=== PATIENT | male | born 1965 | race Caucasian/White ===

== ENCOUNTER 2022-10-10 10:45 | Outpatient (CLI) | payer OTHER, BC, SELFPAY ==
[2022-10-10 13:39] LABS: Basophils Percent Auto 0.9 % (0.0-3.0); Eosinophils Percent Auto 2.3 % (0.0-7.0); Hematocrit 45.6 % (37.0-53.0); Hemoglobin* 15.7 gm/dL (13.5-17.5); Immature Granulocytes Pct Auto 0.3 %; Lymphocytes Percent Auto 36.3 % (20-44); Mean Corpuscular HGB Conc 34 gm/dL (32-36); Mean Corpuscular Hemoglobin 30 pg (26-34); Mean Corpuscular Volume 86 fL (80-100); Monocytes Percent Auto 8.3 % (0.0-11.0); Neutrophils Percent Auto 51.9 % (42.0-72.0); Platelet Count* 120 K/uL (140-440); RDW Coefficient of Variation % 12.9 % (11.5-15.5); Red Blood Count 5.28 m/uL (4.30-5.90)
[2022-10-10 13:46] LABS: Slide Review Reflex No
[2022-10-10 14:11] LABS: Albumin* 4.6 g/dL (3.3-5.0); Chloride* 103 mmol/L (96-114); Potassium* 4.5 mmol/L (3.6-5.1); Sodium* 137 mmol/L (135-149)
[2022-10-10 14:13] LABS: Bilirubin Total* 0.9 mg/dL (0.1-1.5); Carbon Dioxide* 25 mmol/L (20-32); Creatinine* 0.9 mg/dL (0.5-1.5); Estimated Glomerular Filt Rate 101 ml/min
[2022-10-10 14:14] LABS: Alanine Aminotransferase* 78 U/L (4-50); Alkaline Phosphatase* 69 U/L (40-150); Aspartate Amino Transferase* 55 U/L (12-35); Blood Urea Nitrogen* 15 mg/dL (7-30); Calcium* 9.2 mg/dL (8.4-10.6); Cholesterol* 193 mg/dL (90-199); Glucose* 274 mg/dL (60-115); HDL Cholesterol* 40 mg/dL (>=40); Lipase* 64 U/L (23-300); Total Protein* 7.2 g/dL (6.0-8.3)
[2022-10-10 14:15] LABS: Triglycerides* 262 mg/dL (40-149)
[2022-10-10 14:20] LABS: LDL Cholesterol Calculated 101 mg/dL (<100)
== END 2022-10-10 10:46 | disposition home or self-care (01) ==
PROVIDERS: PCP Family Medicine; Visit Provider Family Medicine
DX: R10.9 Unspecified abdominal pain (principal); E11.9 Type 2 diabetes mellitus without complications; I10 Essential (primary) hypertension; E78.5 Hyperlipidemia, unspecified
CPT/HCPCS: 80053; 80061; 83690; 85025

== ENCOUNTER 2022-12-11 14:55 | Outpatient (CLI) | payer OTHER, BC, SELFPAY | END 2022-12-11 14:56 | disposition home or self-care (01) | LOC: NFLDREF 12-13 12:11 | PROVIDERS: PCP Family Medicine; Referring Provider Family Medicine; Visit Provider Family Medicine | DX: Z20.822 Contact with and (suspected) exposure to COVID-19 (principal); Z01.818 Encounter for other preprocedural examination | CPT/HCPCS: 87635 ==

== ENCOUNTER 2022-12-13 09:12 | Day surgery (SDC) | payer OTHER, BC, SELFPAY ==
[2022-12-13] VITALS (25 sets, daily range): BP systolic 96–176; BP diastolic 57–97; PULSE 37–71; RESP 11–20; TEMP 35.8–36.7; O2SAT 91–98; BMI 43.7
[2022-12-13] MEDS: LACTATED RINGERS 1000 ML 1,000 ML 100 ML IV (07:55)
[2022-12-13] MEDS: ACETAMINOPHEN 500 MG TABLET 1000 MG PO ×2 (09:24→18:06)
[2022-12-13] MEDS: OXYCODONE (CR) 10 MG TAB.ER.12H PO (09:25)
[2022-12-13] MEDS: CELECOXIB 200 MG CAPSULE PO (09:25)
--- NOTE | 2022-12-13 10:06 | W.ANESCHARGE ---
Anesthesia Charges Start Date/Time Anesthesia Start Date: 12/13/22 Anesthesia Start Time: 11:14 Stop Date/Time Anesthesia Stop Date: 12/13/22 Anesthesia Stop Time: 13:25
[2022-12-13] MEDS: fentaNYL 100 MCG/2 ML inj IVP (11:00)
[2022-12-13] MEDS: MIDAZOLAM HCL 1 MG/ML inj IVP (11:00)
--- NOTE | 2022-12-13 11:02 | P.NB_ITS ---
Nerve Block Nerve Block Time Seen by Provider: 10:44 Date Seen: 12/13/22 Type of block requested by surgeon for post-operative analgesia: adductor canal Side: right Time out performed: Yes Verification of patient name: Yes Verification of date of : Yes Site marking: site marked Name of person performing procedure: Matheus Assistants, if any: Carter Continuous monitoring Was continuous monitoring of O2 sat, B/P, satellite project site monitor, recorded every 15 minutes?: Yes Procedure Checklist: sterile prep, needles and gloves Ultrasound guided. Images saved: Yes Medications given in 5ml increments after negative aspiration: Ropivicaine %: 0.5 mL: 20 Needle gauge: 20 Decadron (mg): 10 Precedex (mcg): 25 Patient tolerated procedure well: Yes Additional comments: Needle noted adjacent to nerve Block Charges Block Charge (with Pro Fee): Femoral Nerve Use of Ultrasound Machine for Block: Yes- US Guidance/pain block
--- NOTE | 2022-12-13 11:03 | P.NB_ITS ---
Nerve Block Nerve Block Time Seen by Provider: 10:44 Date Seen: 12/13/22 Type of block requested by surgeon for post-operative analgesia: geniculars Side: right Time out performed: Yes Verification of patient name: Yes Verification of date of : Yes Site marking: site marked Name of person performing procedure: Matheus Assistants, if any: Carter Continuous monitoring Was continuous monitoring of O2 sat, B/P, monitoring and evaluation advisor, recorded every 15 minutes?: Yes Procedure Checklist: sterile prep, needles and gloves Medications given in 5ml increments after negative aspiration: Ropivicaine %: 0.5 mL: 9 Needle gauge: 25 Patient tolerated procedure well: Yes Block Charges Block Charge (with Pro Fee): Genicular Nerve Block Use of Ultrasound Machine for Block: No
--- NOTE | 2022-12-13 11:23 | CRLHL7_ITS ---
For Patients: As a result of the Cures Act, medical imaging exams and procedure reports are released immediately into your electronic medical record. You may view this report before your referring provider. If you have questions, please contact your health care provider. Indication: Postop Technique: Two views right knee Findings/Impression: Hardware from a right total knee arthroplasty is in satisfactory position. Bone alignment is normal. No sign of acute fracture. Postop changes are within normal limits. Dictated by Keon العراقي MD @ 12/14/2022 6:30:48 AM (Electronically Signed)
[2022-12-13] MEDS: CEFAZOLIN 2 GM in 0.9 % SODIUM CHLORIDE Mini-bag 100 ML IVPB (11:25)
--- NOTE | 2022-12-13 12:40 | PM.ORPRC ---
Procedure Note Date of procedure: 12/13/22 Procedure: PREOPERATIVE DIAGNOSIS: 1. Right knee osteoarthritis, primary, severe 2. Morbid obesity-BMI 43.8 POSTOPERATIVE DIAGNOSIS: 1. Right knee osteoarthritis, primary, severe 2. Morbid obesity-BMI 43.8 PROCEDURE: 1. Right total knee arthroplasty-of note, 25% added difficulty was encountered in this case due to the patient's body mass with a BMI 43.8 requiring much greater assistance for tissue retraction, a larger incision, and more difficulty throughout exposure of the knee. SURGEON: Yasir Caballero MD. MARKETING PRODUCTION MANAGER: Ashish JUNIOR - Of note, a skilled sales and marketing assistant was critical for this case to aid in patient positioning, tissue retraction, limb manipulation/positioning, and closure. ANESTHESIA: Spinal anesthetic IMPLANTS: DePuy J&J uncemented femur and tibia; cemented patella TKA - Attune PS femur size 9, size 9 tibia, 5 poly spacer, 30 mm patella TOURNIQUET: 85 minutes at 300 torr EBL: 50 ml COMPLICATIONS: None evident INDICATIONS: The patient is a pleasant 57-year-old male who has experienced severe right knee pain and difficulty bearing weight. Workup included x-rays which revealed severe osteoarthrosis in the knee. Given the deformity, the dysfunction, and the pain, as well as the failure of nonoperative management, recommendation was made for surgery. FINDINGS: Full-thickness chondral loss throughout the medial and patellofemoral compartments broadly. Significant chondromalacia lateral compartment as well with osteophytosis diffusely all 3 compartments. Large effusion upon entering the joint. DESCRIPTION OF PROCEDURE: Following a thorough discussion of risks, benefits, and alternatives consent was obtained and the right knee was marked. The patient was brought to the operating room and placed supine on the operating table. Induction of anesthesia was undertaken. 3 g IV Ancef and 1 g tranexamic acid was administered within 1 hr of incision preoperatively. Proper time-out was performed identifying proper patient, site, procedure. The operative extremity was prepped and draped in the appropriate sterile fashion using ChloraPrep after the patient was positioned supine with all bony prominences well padded. A longitudinal, anterior, midline skin incision was made starting approximately 3cm proximal to the superior pole of the patella and advanced distal to the tibial tubercle. A median parapatellar arthrotomy was created. A medial subperiosteal sleeve was created with knife, garduno elevator and curved osteotome. The retropatellar fatpad was resected and the synovium in the suprapatellar pouch excised to visualize the anterior femoral cortex. Femoral preparation was performed via an intramedullary guide. Step drill allowed access into the femoral canal. The distal cutting guide was placed with 5? of valgus and 11 mm cut on the distal femur. Femur was sized using a posterior referencing guide in 3? of external rotation. This found have a best fit with the sizing noted above. The 4 in 1 cutting block was then placed, and the distal femur shaped accordingly. The box cut was then created and the trial implant inserted to confirm appropriate fit. We turned our attention to the proximal tibia. Extramedullary guide was utilized for cutting with the goal of being 90 degree cut from the mechanical axis of the tibia in the varus/valgus plane utilizing tibial crest as the primary alignment. Initially a 2 mm resection was performed from the medial tibial plateau. An additional 4 mm to require resection. Ultimately, balancing was achieved in both flexion and extension in both varus and valgus. The knee was able to achieve full extension as well comfortably. The patella was initially measured and found have a thickness of 29 mm. It was resected back to approximately 19 mm. It was sized to be a best fit with as noted above. This was drilled, trial placed. All trials were placed and found to have an excellent stability and balance. At this stage, trial implants were removed, the cement was being mixed on the back table for the patella, and the tibial and femoral components were inserted for the Press-Fit portion. Excellent fit stability was achieved with these and the real poly insert was opened and inserted at this time. We then turned attention to the patellar preparation completion. Thorough irrigation normal saline was performed. After irrigation, the patella was thoroughly dried, and cement placed, with the real patella implant placed. All extra cement was removed, and a 3 min Betadine soak performed. Finally, a final irrigation round with normal saline was performed. Closure performed with 0 Vicryl and #0 Stratafix for the quad tendon/retinaculum. 2-0 Vicryl for the subcutaneous and 4-0 Stratafix for subcuticular closure. Dressings were applied and the patient was awoken from anesthesia after the tourniquet deflated and transferred the PACU in stable condition. A skilled sales and marketing assistant was critical for this case to aid in patient positioning, tissue retraction, bone exposure, limb manipulation/positioning, patient safety, and closure. * Again, of note, 25% added difficulty was encountered in this case due to the patient's body mass with a BMI 43.8 requiring much greater assistance for tissue retraction, a larger incision, and more difficulty throughout exposure of the knee. PLAN: 1. Weight bear as tolerated operative extremity. 2. 23 hr perioperative antibiotics. 3. Ice. 4. PT/OT consults for ambulation assistance/mobility education. 5. Social work consult for discharge planning. 6. DVT prophylaxis with at SCDs, Lg Hose, and aspirin twice daily.
--- NOTE | 2022-12-13 13:28 | W.ANESCHARGE ---
Anesthesia Charges Start Date/Time Anesthesia Start Date: 12/13/22 Anesthesia Start Time: 11:14 Stop Date/Time Anesthesia Stop Date: 12/13/22 Anesthesia Stop Time: 13:25
[2022-12-13] MEDS: LACTATED RINGERS 1000 ML 1,000 ML 35 ML IV (13:50)
--- NOTE | 2022-12-13 14:49 | PM.IMCN1 ---
Date of Consult Patient: [facility] Patient Consult date: 12/13/22 Primary Care Provider: Keon Mejia MD Consult Narrative Reason for consult: Medical management of comorbidities Narrative: Blu Lopez is a 57 year old male who presented to the hospital today for an elective R TKA with Dr. Caballero of Orthopedic surgery. There were no surgical or anesthetic complications noted during procedure. Patient's H&P reviewed, PCP is Dr. Mejia. Past medical history significant for: Dqu-dueskrx-qddectaez DM2 (A1c 8.4 09/2022), JACQUELYN on CPAP, elevated LFTs, colon cancer, CAD. History of blood clots: No Postoperative plan: Home with Patient lives with in [place], works for [employer]. He is a nonsmoker, rare alcohol user. He has no concerns for the hospitalist team postoperatively. Review of Systems Status of ROS: Reports: 10 or more systems reviewed and unremarkable except as noted in History and below [facility] Medical History (Updated 10/15/22 @ 22:30 by Keon Mejia MD) Benign prostatic hyperplasia (02/15/21) History of gout Hyperlipidemia Hypertension Malignant neoplasm of colon (08/15/16) Non-ST elevation myocardial infarction (NSTEMI) Obesity Obstructive sleep apnea treated with continuous positive airway pressure (CPAP) (2015) Osteoarthritis of left knee Osteoarthritis of right knee Type 2 diabetes mellitus Surgical History (Updated 12/13/22 @ 14:55 by Adia Smyth MD) History of Achilles tendon repair (~1997) History of colonoscopy with polypectomy (11/13/17) History of right coronary artery stent placement (01/2021) History of right hemicolectomy (11/07/16) S/P left knee arthroscopy (06/11/19) Status post appendectomy (~1972) Family History (Updated 11/28/22 @ 12:20 by Keren Sanchez RN) Father Colon cancer, Onset Age: 70 Heart disease COPD (chronic obstructive pulmonary disease) Mother Heart disease COPD (chronic obstructive pulmonary disease) Paternal Grandfather Type 2 diabetes mellitus Social History (Updated 03/30/22 @ 10:26 by Bladimir Mohr) Narrative: -Marleny, 2 kids, [employer] Non-smoker Moderate EtOH Smoking Status: Never smoker Do you use any of these nicotine containing products: None How often do you have a drink containing alcohol: 2-3 times a week Alcohol type: hard liquor How many standard drinks containing alcohol do you have on a typical day: 3 or 4 How often do you have six or more drinks on one occasion: Less than monthly AUDIT-C Alcohol total score: 5 Non-prescribed substance use: denies use Caffeine: Yes (1 diet pop/day) Little interest or pleasure in doing things: not at all Feeling down, depressed, or hopeless: not at all Meds Home Medications and Allergies Home Medications Medication Instructions Recorded Confirmed Type Cpap inhalation 10/09/22 12/05/22 History aspirin 81 mg chewable tablet 1 tab PO DAILY 10/09/22 12/05/22 History lancets 33 gauge (OneTouch Delica 10/09/22 12/05/22 History Lancets) nitroglycerin 0.4 mg sublingual 0.4 mg buccal Q5-15M PRN 10/09/22 12/05/22 History tablet Diabetic Test Strips 10/10/22 12/05/22 History Allergies Allergy/AdvReac Type Severity Reaction Status Date / Time Pollen Allergy Mild Congested Uncoded 12/05/22 07:46 Exam Narrative: Exam Narrative: GEN: Alert and oriented, sitting comfortably in bed and answering questions appropriately HEENT: EOMIs bilaterally, no scleral icterus CV: RRR, No concerning murmurs, rubs, or gallops R: LCTA bilaterally without concerning wheezing, breathing comfortably Skin: No concerning skin lesions or rashes on exposed skin Neuro: No focal deficits Psych: Appropriate Const: Vital Signs, click to edit/add: Vital Signs - 24 hr 12/13/22 09:26 12/13/22 13:23 12/13/22 13:30 Temperature 97.3 F L 97.4 F L Pulse Rate 48 L 44 L 39 L Respiratory Rate 16 14 12 Blood Pressure 143/92 H 97/57 L 96/62 Pulse Oximetry 98 91 93 Oxygen Delivery Me thod Nasal Cannula Oxygen Flow Rate 3 12/13/22 13:35 12/13/22 13:40 12/13/22 13:45 Temperature Pulse Rate 38 L 38 L 37 L Respiratory Rate 12 11 L 12 Blood Pressure 102/80 99/67 108/66 Pulse Oximetry 96 97 96 Oxygen Delivery Me thod Oxygen Flow Rate 12/13/22 13:50 12/13/22 13:55 12/13/22 14:00 Temperature 97.0 F L Pulse Rate 38 L 38 L 37 L Respiratory Rate 12 13 12 Blood Pressure 105/72 110/68 108/75 Pulse Oximetry 96 97 98 Oxygen Delivery Me thod Oxygen Flow Rate 12/13/22 14:05 12/13/22 14:10 12/13/22 14:15 Temperature 96.9 F L Pulse Rate 38 L 38 L 38 L Respiratory Rate 13 12 11 L Blood Pressure 117/72 118/71 116/94 H Pulse Oximetry 98 97 98 Oxygen Delivery Me thod Room Air Oxygen Flow Rate Assessment and Plan Assessment and plan (1) Total knee replacement status: Problem comment: - R, Dr. Caballero, 12/13/22 Status: Acute (2) Obstructive sleep apnea treated with continuous positive airway pressure (CPAP): Status: Acute (3) Hypertension: Status: Acute (4) Type 2 diabetes mellitus: Problem comment: A1C of 8.4% on 10/10/2022 Status: Acute (5) Hyperlipidemia: Status: Acute Plan - pain management and prophylaxis per orthopedic surgery team - Continue CPAP at night and home medications for comorbidities - Accu-Cheks and SSI
--- NOTE | 2022-12-13 15:22 | PC.NURSE ---
End of Shift: A&Ox3. Pulse rate in the 40s upon returning from PACU. Pt asymptomatic. Pt on monitor at nurses station. Reporting no pain. Able to move right leg side to side. Dressing CDI. Cryocuff to right knee. at bedside.
[2022-12-13] MEDS: CEFAZOLIN 3 GM in 0.9 % SODIUM CHLORIDE 100 ml 100 ML IVPB (18:07)
[2022-12-13] MEDS: LACTATED RINGERS 1000 ML 1,000 ML 75 ML IV (18:07)
--- NOTE | 2022-12-13 18:41 | PC.NURSE ---
Pt rating pain 0-3/10. Scheduled Tylenol given, pt denies need for narcotic at this time. Up to chair for first time with walker, gait belt, and assist of 2 for dinner meal, denies N/V. Pt denies dizziness upon ambulation to chair. Ambulated steady and strong. Pt had one unmeasured void in bed and one measured, see I's&O's. Pt will return home upon DC to his home with , Marleny.
[2022-12-13] MEDS: HYDROmorphone 0.5 mg/0.5 ml inj IVP ×2 (18:51→22:11)
[2022-12-13] MEDS: OXYCODONE 5 MG TABLET PO ×2 (21:06→23:12)
[2022-12-13] MEDS: ASPIRIN 81 MG TABLET EC PO (21:06)
[2022-12-13] MEDS: ATORVASTATIN CALCIUM 40 MG TABLET PO (21:06)
[2022-12-13] MEDS: SENNOSIDES 1 TAB TABLET 2 TAB PO (21:07)
[2022-12-14] MEDS: ACETAMINOPHEN 500 MG TABLET 1000 MG PO ×2 (00:02→06:17)
[2022-12-14] MEDS: CEFAZOLIN 3 GM in 0.9 % SODIUM CHLORIDE 100 ml 100 ML IVPB (02:00)
[2022-12-14] MEDS: OXYCODONE 5 MG TABLET PO ×3 (02:00→08:31)
[2022-12-14 02:45] VITALS: BP 149/80; PULSE 63; RESP 20; TEMP 36.6; O2SAT 96
--- NOTE | 2022-12-14 06:04 | PC.NURSE ---
Shift note 23-: Pt Rating pain to R knee 5/10 taking scheduled Tylenol w/ PRN Oxycodone and cyrocuff to op site, states much improved. R knee drsg CDI, CMS intact.Up to BR SBA and walker, moving well. Plans to DC home w/ today.
--- NOTE | 2022-12-14 07:24 | PC.NURSE ---
Pt alert and oriented x3. Afebrile. Pt reports 4/10 pain in right knee, pain managed with PRN oxycodone and scheduled Tylenol. Pt?s right knee dressing is CDI. Pt is voiding, tolerating a regular diet, up SBA with walker and gait belt.??
[2022-12-14 07:34] LABS: Basophils Absolute Auto 0.01 K/uL (0.00-0.30); Basophils Percent Auto 0.1 % (0.0-3.0); Hematocrit 39.5 % (37.0-53.0); Hemoglobin* 13.5 gm/dL (13.5-17.5); Immature Granulocytes Abs Auto 0.01 K/uL (0.00-0.30); Immature Granulocytes Pct Auto 0.1 %; Lymphocytes Percent Auto 10.6 % (20-44); Mean Corpuscular HGB Conc 34 gm/dL (32-36); Mean Corpuscular Hemoglobin 29 pg (26-34); Mean Corpuscular Volume 86 fL (80-100); Monocytes Percent Auto 6.6 % (0.0-11.0); Neutrophils Percent Auto 82.6 % (42.0-72.0); Platelet Count* 139 K/uL (140-440); RDW Coefficient of Variation % 12.9 % (11.5-15.5); White Blood Count* 8.09 K/uL (4.50-11.00)
[2022-12-14 07:46] LABS: Slide Review Reflex No
[2022-12-14 07:53] LABS: Potassium* 4.3 mmol/L (3.6-5.1); Sodium* 135 mmol/L (135-149)
[2022-12-14 07:57] LABS: Creatinine* 0.9 mg/dL (0.5-1.5); Est. Creatinine Clearance* 94.63; Estimated Glomerular Filt Rate 100 ml/min
--- NOTE | 2022-12-14 08:24 | PM.ORPN ---
Subjective Subjective Date Seen: 12/14/22 Principal diagnosis: Status postop day 1 right total knee arthroplasty Interval history: Patient reports doing well. No acute events over night. Had a few hours during the night difficulty sleeping due to pain. Pain managed with scheduled /PRN medications and ice. DVT prophylaxis 81 mg aspirin by mouth twice daily, bilateral knee high Lg stockings, and SCDs. Denies fevers, chills, aches, N/V, CP, SOB/MARTINES, tachycardia, or lightheadedness. Ortho Exam Narrative Exam Narrative: -Patient appears comfortable; no apparent acute distress -Alert and oriented times 3 -Operative knee mildly swollen; soft tissues supple; no ecchymosis; no erythematous streaking Warmth appropriate -Surgical dressing clean, dry, intact; no drainage -Bilateral calfs soft; no significant swelling, edema, erythema, discoloration, warmth, or palpable cords. Slightly tender to palpation posterior proximal calf right leg -2+ DP/PT pulses, intact dermatomes and myotomes distally (5/5 strength) Const Vital Signs, click to edit/add: Vital Signs - 24 hr 12/13/22 09:26 12/13/22 13:23 12/13/22 13:30 Temperature 97.3 F L 97.4 F L Pulse Rate 48 L 44 L 39 L Pulse Rate [Pulse Oximeter] Respiratory Rate 16 14 12 Blood Pressure 143/92 H 97/57 L 96/62 Blood Pressure [Left Arm] Pulse Oximetry 98 91 93 Oxygen Delivery Method Nasal Cannula Oxygen Flow Rate 3 12/13/22 13:35 12/13/22 13:40 12/13/22 13:45 Temperature Pulse Rate 38 L 38 L 37 L Pulse Rate [Pulse Oximeter] Respiratory Rate 12 11 L 12 Blood Pressure 102/80 99/67 108/66 Blood Pressure [Left Arm] Pulse Oximetry 96 97 96 Oxygen Delivery Method Oxygen Flow Rate 12/13/22 13:50 12/13/22 13:55 12/13/22 14:00 Temperature 97.0 F L Pulse Rate 38 L 38 L 37 L Pulse Rate [Pulse Oximeter] Respiratory Rate 12 13 12 Blood Pressure 105/72 110/68 108/75 Blood Pressure [Left Arm] Pulse Oximetry 96 97 98 Oxygen Delivery Method Oxygen Flow Rate 12/13/22 14:05 12/13/22 14:10 12/13/22 14:15 Temperature 96.9 F L Pulse Rate 38 L 38 L 38 L Pulse Rate [Pulse Oximeter] Respiratory Rate 13 12 11 L Blood Pressure 117/72 118/71 116/94 H Blood Pressure [Left Arm] Pulse Oximetry 98 97 98 Oxygen Delivery Method Room Air Oxygen Flow Rate 12/13/22 14:25 12/13/22 14:45 12/13/22 15:15 Temperature 96.4 F L 97.5 F L Pulse Rate 42 L Pulse Rate [Pulse Oximeter] 41 L 47 L Respiratory Rate 16 16 Blood Pressure Blood Pressure [Left Arm] 126/80 142/69 H 141/91 H Pulse Oximetry 95 96 Oxygen Delivery Method Room Air Room Air Room Air Oxygen Flow Rate 12/13/22 15:00 12/13/22 15:20 12/13/22 15:30 Temperature 97.8 F Pulse Rate Pulse Rate [Pulse Oximeter] 50 L 49 L Respiratory Rate 16 18 Blood Pressure Blood Pressure [Left Arm] 131/79 149/85 H Pulse Oximetry 94 97 96 Oxygen Delivery Method Room Air Room Air Oxygen Flow Rate 12/13/22 16:00 12/13/22 16:30 12/13/22 17:00 Temperature 97.8 F Pulse Rate Pulse Rate [Pulse Oximeter] 44 L 40 L 44 L Respiratory Rate 18 18 18 Blood Pressure Blood Pressure [Left Arm] 133/75 141/80 H 157/85 H Pulse Oximetry 95 95 94 Oxygen Delivery Method Room Air Room Air Room Air Oxygen Flow Rate 12/13/22 19:00 12/13/22 18:00 12/13/22 20:00 Temperature 97.9 F 97.5 F L Pulse Rate Pulse Rate [Pulse Oximeter] 58 L 71 54 L Respiratory Rate 20 20 16 Blood Pressure Blood Pressure [Left Arm] 142/83 H 176/97 H 145/81 H Pulse Oximetry 96 96 97 Oxygen Delivery Method Room Air Room Air Room Air Oxygen Flow Rate 12/13/22 23:50 12/14/22 02:45 Temperature 98.0 F 97.8 F Pulse Rate Pulse Rate [Pulse Oximeter] 54 L 63 Respiratory Rate 18 20 Blood Pressure Blood Pressure [Left Arm] 123/59 L 149/80 H Pulse Oximetry 95 96 Oxygen Delivery Method CPAP Room Air Oxygen Flow Rate Assessment and Plan Assessment and plan (1) Total knee replacement status: Problem details: POD 1 right total knee arthroplasty Dr. Caballero, 12/13/22 Status: Acute (2) Obstructive sleep apnea treated with continuous positive airway pressure (CPAP): Status: Acute (3) Hypertension: Status: Acute (4) Type 2 diabetes mellitus: Problem details: A1C of 8.4% on 10/10/2022 Status: Acute (5) Hyperlipidemia: Status: Acute Plan - Complete 23 hour perioperative antibiotics. - PT/OT consult for education and assistance. - Social work consult for discharge planning - Prescribed analgesics as needed - DVT prophylaxis: 81 mg aspirin by mouth twice daily, bilateral knee high Lg Hose stockings and SCDs (regarding right calf discomfort; will monitor, no concern for DVT at this time) - Anticipation is for discharge to home with family 12/14/2022 if the patient remains medically stable, pain is controlled, and they are safe with mobilization.
--- NOTE | 2022-12-14 08:27 | P.DS_ITS ---
DS: Providers Provider Date Seen: 12/14/22 Date of admission: Med/Surg Recovery 12/13/2022 Primary care physician: Keon Mejia MD Consults: 12/13/22 14:25 Consult to Occupational Therapy [CONS] Routine Comment: Reason(s) for OT Consult:: ADLs Prior to Discharge Any Restrictions?:: See Comment Comment: See nursing activity order for any restrictions. Consult to Physical Therapy [CONS] Routine Comment: Ambulate in the long today. Reason(s) for PT Consult:: TKA TX Protocol POD#0 Any Restrictions?:: See Comment Comment: See nursing activity order for any restrictions. Consult to Physician [CONS] Routine Comment: Consulting Provider: Hospitalists Has provider been notified: No Consult to Electric Motor Mechanic [CONS] Routine Comment: Reason for Consult:: Discharge Planning Needs Attending Physician on discharge: Yasir Caballero MD Date of Discharge: 12/14/22 DS: Diagnosis Discharge Diagnosis (1) Total knee replacement status: Status: Acute Problem details: POD 1 right total knee arthroplasty Dr. Caballero, 12/13/22 DS: Summary Hospital Course Hospital Course: The patient has a history of right knee osteoarthritis, primary, severe. After appropriate preoperative evaluation, the patient underwent right total knee arthroplasty. Postoperatively given anticoagulation for deep vein thrombosis prophylaxis - 81 mg aspirin by mouth twice daily. They progressed to PT/OT and were felt ready and prepared for discharge to home with appropriate pain medication and anticoagulation medications. Status at Discharge Functional status at discharge: uses cane/walker Overall status at discharge: patient is progressing back to baseline Time Spent with Patient Time attestation: Total time spent providing and/or coordinating discharge services: Time spent: Less than 30 minutes Exam Const: Vital Signs, click to edit/add: Vital Signs - 24 hr 12/13/22 09:26 12/13/22 13:23 12/13/22 13:30 Temperature 97.3 F L 97.4 F L Pulse Rate 48 L 44 L 39 L Pulse Rate [Pulse Oximeter] Respiratory Rate 16 14 12 Blood Pressure 143/92 H 97/57 L 96/62 Blood Pressure [Le ft Arm] Pulse Oximetry 98 91 93 Oxygen Delivery Me thod Nasal Cannula Oxygen Flow Rate 3 12/13/22 13:35 12/13/22 13:40 12/13/22 13:45 Temperature Pulse Rate 38 L 38 L 37 L Pulse Rate [Pulse Oximeter] Respiratory Rate 12 11 L 12 Blood Pressure 102/80 99/67 108/66 Blood Pressure [Le ft Arm] Pulse Oximetry 96 97 96 Oxygen Delivery Me thod Oxygen Flow Rate 12/13/22 13:50 12/13/22 13:55 12/13/22 14:00 Temperature 97.0 F L Pulse Rate 38 L 38 L 37 L Pulse Rate [Pulse Oximeter] Respiratory Rate 12 13 12 Blood Pressure 105/72 110/68 108/75 Blood Pressure [Le ft Arm] Pulse Oximetry 96 97 98 Oxygen Delivery Me thod Oxygen Flow Rate 12/13/22 14:05 12/13/22 14:10 12/13/22 14:15 Temperature 96.9 F L Pulse Rate 38 L 38 L 38 L Pulse Rate [Pulse Oximeter] Respiratory Rate 13 12 11 L Blood Pressure 117/72 118/71 116/94 H Blood Pressure [Le ft Arm] Pulse Oximetry 98 97 98 Oxygen Delivery Me thod Room Air Oxygen Flow Rate 12/13/22 14:25 12/13/22 14:45 12/13/22 15:15 Temperature 96.4 F L 97.5 F L Pulse Rate 42 L Pulse Rate [Pulse Oximeter] 41 L 47 L Respiratory Rate 16 16 Blood Pressure Blood Pressure [Le ft Arm] 126/80 142/69 H 141/91 H Pulse Oximetry 95 96 Oxygen Delivery Me thod Room Air Room Air Room Air Oxygen Flow Rate 12/13/22 15:00 12/13/22 15:20 12/13/22 15:30 Temperature 97.8 F Pulse Rate Pulse Rate [Pulse Oximeter] 50 L 49 L Respiratory Rate 16 18 Blood Pressure Blood Pressure [Le ft Arm] 131/79 149/85 H Pulse Oximetry 94 97 96 Oxygen Delivery Me thod Room Air Room Air Oxygen Flow Rate 12/13/22 16:00 12/13/22 16:30 12/13/22 17:00 Temperature 97.8 F Pulse Rate Pulse Rate [Pulse Oximeter] 44 L 40 L 44 L Respiratory Rate 18 18 18 Blood Pressure Blood Pressure [Le ft Arm] 133/75 141/80 H 157/85 H Pulse Oximetry 95 95 94 Oxygen Delivery Me thod Room Air Room Air Room Air Oxygen Flow Rate 12/13/22 19:00 12/13/22 18:00 12/13/22 20:00 Temperature 97.9 F 97.5 F L Pulse Rate Pulse Rate [Pulse Oximeter] 58 L 71 54 L Respiratory Rate 20 20 16 Blood Pressure Blood Pressure [Le ft Arm] 142/83 H 176/97 H 145/81 H Pulse Oximetry 96 96 97 Oxygen Delivery Me thod Room Air Room Air Room Air Oxygen Flow Rate 12/13/22 23:50 12/14/22 02:45 Temperature 98.0 F 97.8 F Pulse Rate Pulse Rate [Pulse Oximeter] 54 L 63 Respiratory Rate 18 20 Blood Pressure Blood Pressure [Le ft Arm] 123/59 L 149/80 H Pulse Oximetry 95 96 Oxygen Delivery Me thod CPAP Room Air Oxygen Flow Rate DS: Data Data Completed and Pending Labs on day of discharge: Labs from last 24 hours 12/14/22 06:27 WBC 8.09 RBC 4.60 Hgb 13.5 Hct 39.5 MCV 86 MCH 29 MCHC 34 RDW Coeff of Moreno 12.9 Plt Count 139 L Neut % (Auto) 82.6 H Lymph % (Auto) 10.6 L Wells % (Auto) 6.6 Eos % (Auto) 0.0 Baso % (Auto) 0.1 Neut # (Auto) 6.70 Lymph # (Auto) 0.90 Wells # (Auto) 0.50 Eos # (Auto) 0.00 Baso # (Auto) 0.01 Sodium 135 Potassium 4.3 BUN Pending Creatinine 0.9 Estimated Creat Clear 94.63 Estimated GFR 100 Discharge Plan Discharge Disposition: Home, Self-Care Discharging Surgeon: Yasir Caballero Follow-Up Appointment: 1 week PO with Aneudy KERR Prescriptions: New sennosides-docusate sodium [Senna-S] 8.6-50 mg tablet 1 - 4 tab-cap PO BID PRN (Reason: constipation) Qty: 60 0RF Rx Instructions: Hold medication if experiencing loose stools. aspirin 81 mg tablet,delayed release (DR/EC) 81 mg PO BID Qty: 60 0RF Rx Instructions: Medication to help prevent blood clots postoperatively; take TWICE daily. celecoxib 100 mg capsule 100 mg PO BID Qty: 60 0RF acetaminophen 500 mg capsule 500 - 1,000 mg PO Q6H MDD 4000mg PRNQty: 100 0RF oxycodone 5 mg tablet 2.5 - 5 mg PO Q4-6H MDD 6 PRN (Reason: pain) Qty: 42 0RF Rx Instructions: Take as needed for postop pain: 2.5mg mild pain, 5mg moderate-severe pain; wean as tolerated. No Action aspirin 81 mg tablet,chewable 1 tab PO DAILY nitroglycerin 0.4 mg tablet, sublingual 0.4 mg buccal Q5-15M PRN (DME) lancets [OneTouch Delica Lancets] 33 gauge misc See Rx Instructions .Route Rx Instructions: As directed Cpap (DME) Diabetic Test Strips Misc See Rx Instructions .Route Rx Instructions: use to check blood glucose one time daily linagliptin 5 mg tablet 5 mg PO DAILY Qty: 90 3RF atorvastatin 40 mg tablet 40 mg PO QHS Qty: 90 3RF tamsulosin 0.4 mg capsule 0.4 mg PO DAILY Qty: 90 3RF codeine-guaifenesin 10-100 mg/5 mL liquid 10 ml PO Q6H PRN (Reason: cough) Qty: 237 0RF Hold Instructions: prn glimepiride 2 mg tablet 2 mg PO QAM Qty: 90 1RF Rx Instructions: administer with breakfast Activity Level: Activity as Tolerated, Weight Bearing as Tolerated, Use Cane and Use Walker Activity Detail: Wound: ?Do not remove original dressing; we will remove this at first postop visit in 1 week. Only remove dressing if integrity is in question. ?No immersing wound in water; showering okay; light scrub with your hand and body soap, rinse, dab dry ?Sutures are under the skin, will dissolve; allow surgical glue to come off naturally; do not scrub the wound or apply ointments/lotions ?Call our office with any redness that streaks, excessive drainage from the wound, or wound gapping. Ice/Elevate: ?Ice as needed for swelling and discomfort (cryocuff or ice pack); elevate frequently above the heart TOBY socks: ?Wear for 1 month, remove for 1 hour 3 times per day ?These are frustrating to take on/off, but are important for blood clot prevention for 1 month after surgery Blood Clot Prevention (DVT): ?Medication: 81 mg aspirin by mouth twice daily (1 month) Driving: ?Do not drive while taking narcotic pain medication ?Anticipate 4-6 weeks no driving if operative leg is driving leg Dental: ?No elective dental work for 6 months post-op. If there is an urgent/emergent dental need, contact our office for an antibiotic prescription. Smoking/Alcohol: ?Do not smoke; do no drink alcohol especially when taking postoperative oral narcotic medication Seek Care from you Primary Care Provider if you experience the following issues in the postoperative phase and beyond: ?Bacterial infections such as: pneumonia, bacterial skin infection (cellulitis), UTI, high fever, chills unrelated to the operative body part - call your primary care physician urgently for treatment in hopes to protect your health and the metal implant. Referrals: ?PT, OT per patient preference - evaluate treat total knee arthroplasty protocol (gait training, ROM, ADLs) Follow up: ?Ortho surgeon follow-up in 6 weeks; repeat radiographs three views operative knee ?PA-C visit in 1 week *If there are any acute concerns regarding your surgery, please call our orthopedic clinic ([phone]) Discharge Diet: Diabetic Patient Instructions: Surgical Site Infections (DC) Forms: Work/School Release Follow-up: Koen Mejia MD [Primary Care Provider] - Discharge Orders: Discharge Order (Routine); Ordered 12/14/22 Ordered By: Aneudy Tyler
[2022-12-14] MEDS: SENNOSIDES 1 TAB TABLET 2 TAB PO (08:30)
[2022-12-14] MEDS: GLIMEPIRIDE 1 MG TABLET 2 MG PO (08:30)
[2022-12-14] MEDS: TAMSULOSIN HCL 0.4 MG CAPSULE PO (08:30)
[2022-12-14] MEDS: ASPIRIN 81 MG TABLET EC PO (08:31)
[2022-12-14 08:35] LABS: Blood Urea Nitrogen* 17 mg/dL (7-30)
[2022-12-14 08:50] VITALS: BP 133/71; PULSE 61; RESP 16; TEMP 36.3; O2SAT 96
[2022-12-14 09:46] VITALS: BP 116/94; PULSE 42; RESP 16; TEMP 36.3
[2022-12-14 10:35] VITALS: BP 116/94; PULSE 42; RESP 16; TEMP 36.3
--- NOTE | 2022-12-14 10:36 | PC.NURSE ---
Discharge: Patient pleasant and cooperative. Up with SBA, pain well controlled with PRN oxycodone. Vitals stable and WNL. Dressing over right knee dry and intact. Discharge instructions and follow up reviewed with patient and spouse. IV removed with catheter intact. Discharged via wheelchair @ 1028, home with .
--- NOTE | 2022-12-14 14:35 | PC.SOCIAL ---
Met with pt and pt's in pt's room to discuss discharge plans. Pt and pt's stated they are prepared at home for pt's recovery. Pt has assistance from his during recovery at home. Pt states he has a walker to assist with recovery. Pt does not have any identified needs for social work. Informed pt and pt's if they have any questions they may reach out to the social work department.
== END 2022-12-14 10:28 | disposition home or self-care (01) ==
LOC: OR 09:12 → MEDSURG 09:16
PROVIDERS: PCP Family Medicine; Visit Provider Orthopaedic Surgery Sports Medicine
PROC: (CPT 27447; principal; 2022-12-13 10:45)
DX: M17.11 Unilateral primary osteoarthritis, right knee (principal); E66.01 Morbid (severe) obesity due to excess calories; Z68.41 Body mass index [BMI] 40.0-44.9, adult; G47.33 Obstructive sleep apnea (adult) (pediatric); Z99.89 Dependence on other enabling machines and devices; I10 Essential (primary) hypertension; E11.9 Type 2 diabetes mellitus without complications; N40.0 Benign prostatic hyperplasia without lower urinary tract symptoms; E78.5 Hyperlipidemia, unspecified; Z85.038 Personal history of other malignant neoplasm of large intestine; I25.2 Old myocardial infarction
CPT/HCPCS: 27447; 01400; 01402; 36415; 73560; 76942; 82565; 84132; 84295; 84520; 85025; 94761; 97110; 97116; 97161; 97165; 97530; 97535; A9270; C1776; J0690; J1100; J1170; J2250; J2405; J2704; J2795; J3010; J7120

== ENCOUNTER 2023-03-07 08:04 | Outpatient (CLI) | payer OTHER, BC, SELFPAY | END 2023-03-07 08:05 | disposition home or self-care (01) | LOC: NFLDREF 03-08 00:58 | PROVIDERS: PCP Family Medicine; Referring Provider Family Medicine; Visit Provider Family Medicine | DX: I10 Essential (primary) hypertension (principal); E11.9 Type 2 diabetes mellitus without complications | CPT/HCPCS: 80048 ==

== ENCOUNTER 2023-12-11 07:46 | Outpatient (CLI) | payer OTHER, BC, SELFPAY | END 2023-12-11 07:47 | disposition home or self-care (01) | PROVIDERS: PCP Family Medicine; Visit Provider Family Medicine | DX: E78.5 Hyperlipidemia, unspecified (principal); I10 Essential (primary) hypertension; N40.0 Benign prostatic hyperplasia without lower urinary tract symptoms; Z12.5 Encounter for screening for malignant neoplasm of prostate | CPT/HCPCS: 80048; 80061; 80076; G0103 ==

== ENCOUNTER 2024-09-05 12:12 | Outpatient (CLI) | payer OTHER, BC, SELFPAY | END 2024-09-05 12:13 | disposition home or self-care (01) | PROVIDERS: PCP Family Medicine; Visit Provider Family Medicine | DX: E78.2 Mixed hyperlipidemia (principal); I10 Essential (primary) hypertension | CPT/HCPCS: 80048; 80076; 85025 ==

== ENCOUNTER 2024-11-25 09:46 | Outpatient (RCR) | payer OTHER, BC, SELFPAY ==
[2024-11-18] MEDS: SODIUM CHLORIDE 0.9 % (FLUSH) 10 ML SYRINGE IVF (08:50)
[2024-11-18] MEDS: REGADENOSON 0.4 MG/5 ML SYRINGE IVP (08:50)
[2024-11-18 10:10] VITALS: BP 129/73; PULSE 65; RESP 16
[2024-11-18 10:11] LABS: Troponin I* < 0.01 ng/mL (0.01-0.04)
--- NOTE | 2024-11-18 10:22 | W.PM.STED ---
Stress Test Note Date Date Seen: 11/18/24 Date of test: 11/18/24 Providers Primary care provider: Keon Mejia Stress test physician: Kajal Musa Stress Test Note Stress test ordered: Lexiscan Indication for test: Dyspnea on exertion, chest discomfort, history NSTEMI Stress test medicine: Lexiscan Results discussion: Resting EKG: Sinus bradycardia, 53 beats per minute. Significant artifact. Resting blood pressure: 137/85 Stress test: Patient is consented on Lexiscan and agrees to proceed. Patient did a walking Lexiscan protocol. With the infusion of the regadenoson,, had some mild shortness of breath. He did not have any noted excessive shortness of breath. Occasional PVCs seen, no arrhythmia. He did not have any increased chest pain during this stress test. No diagnostic ischemic change noted. Patient had elevation of his blood pressure during the stress test to 161/87, no hypotension noted. Blood pressure recovered nicely. Of note, patient came into this stress test complaining of 3/10 anterior substernal chest discomfort. This had been there consistently during waking hours for the past 3 days. Patient noted no exertional component to this. He did note positional component such as lying on his sides or his stomach increased his symptoms. Patient in I discussed having cardiac evaluation in the ER, he states he has been trying to get this stress test scheduled since August. Did discuss with him that active coronary ischemia is a contraindication to doing this. We went over risks and benefits. He did want to proceed, I do think it is reasonable given his symptoms have been present for 3 days and he has been up doing normal activities of daily living without change in his symptoms. Makes active coronary ischemia much less likely. He understood that if he had any increased chest symptoms with this test, that we would likely moved to the ED. We did do a lab troponin which did come back at 0.01 which is normal. Did update his primary Dr. Mejia, he was in agreement with this plan. Impression: Subjectively negative, objectively negative EKG portion of this Lexiscan: Patient had no increased symptomatology with this test, troponin was normal, do think any active ischemia causing his current chest symptoms is much less likely. Await nuclear images to couple this for a full formal diagnostic. Patient was discharged in stable condition. Follow up suggested: Await nuclear images. Patient is to follow up with his primary Dr. Mejia. If he has any change in his symptomatology, increasing symptoms, do think he needs to return to the ER for further evaluation. Otherwise, see Dr. Mejia for re-evaluation.
== END 2024-12-02 23:59 | disposition home or self-care (01) ==
LOC: STRESS 09:46
PROVIDERS: PCP Family Medicine; Visit Provider Family Medicine
DX: I21.4 Non-ST elevation (NSTEMI) myocardial infarction (principal); R07.9 Chest pain, unspecified
CPT/HCPCS: 36415; 78452; 84484; 93016; 93017; A9500; J2785

== ENCOUNTER 2024-12-02 08:43 | Outpatient (CLI) | payer OTHER, BC, SELFPAY | END 2024-12-02 08:44 | disposition home or self-care (01) | PROVIDERS: PCP Family Medicine; Visit Provider Family Medicine | DX: I10 Essential (primary) hypertension (principal); E78.2 Mixed hyperlipidemia; E11.9 Type 2 diabetes mellitus without complications; E66.9 Obesity, unspecified | CPT/HCPCS: 80048; 80061; 80076 ==

== ENCOUNTER 2025-03-09 08:45 | Outpatient (CLI) | payer OTHER, BC, SELFPAY ==
[2025-03-09 15:40] LABS: Cholesterol* 115 mg/dL (90-199)
[2025-03-09 15:41] LABS: HDL Cholesterol* 51 mg/dL (>=40); LDL Cholesterol Calculated 38 mg/dL (<100); Triglycerides* 128 mg/dL (40-149)
== END 2025-03-09 08:46 | disposition home or self-care (01) ==
LOC: NPINS 08:46
PROVIDERS: PCP Family Medicine; Visit Provider Internal Medicine
DX: I25.10 Atherosclerotic heart disease of native coronary artery without angina pectoris (principal)
CPT/HCPCS: 80061